=== PATIENT | female | born 1990 | race Caucasian/White ===

== ENCOUNTER 2017-01-13 18:04 | Emergency (ER) | payer BC, MEDICAID ==
[~2017-01-13] VITALS: Ht 157.5 cm; Wt 97.8 kg
[~2017-01-13 18:04] MED LIST: DESO1TAB33 PO; ENOX150S5 SQ; FOLI-17 PO; IBUP-1222 PO; IBUP800T PO; OXYC-302 PO; PREN1TAB60 PO; WARF5TAB7 PO-COUM; [UNRECOGNIZED DRUG - CODE] SQ; [UNRECOGNIZED DRUG - OTHER] PO
[2017-01-13] MEDS ORDERED: SODIUM CHLORIDE 0.9% 1,000 ML IV ONE (18:51)
[2017-01-13] MEDS ORDERED: SODIUM CHLORIDE 0.9% 1,000ML IVBOLUS ONE (19:00)
[2017-01-13] MEDS ORDERED: ONDANSETRON 2MG/ML, 2ML IVPush ONE (19:00)
[2017-01-13] MEDS ORDERED: FAMOTIDINE 20 MG/2 ML IVP ONE (19:00)
[2017-01-13 19:27] LABS: ASPARTATE AMINO TRANSFERASE 17 U/L (15-37); BLOOD UREA NITROGEN 15 mg/dL (7-18)
[2017-01-13] MEDS ORDERED: ONDANSETRON 2MG/ML, 2ML ONE (20:41)
[2017-01-13] MEDS ORDERED: FAMOTIDINE 20 MG/2 ML ONE (20:41)
[2017-01-13 22:11] VITALS: BP 115/68
== END 2017-01-14 00:31 | disposition home or self-care (01) ==
LOC: ED 21:57
DX: R10.84 Generalized abdominal pain (principal); R11.2 Nausea with vomiting, unspecified; R19.7 Diarrhea, unspecified; Z90.49 Acquired absence of other specified parts of digestive tract
CPT/HCPCS: 36415; 74022; 80053; 81001; 83690; 84703; 85025; 93005; 96361; 96374; 96375; 99285; J2405; J7030; S0028

== ENCOUNTER → 2017-02-04 | Outpatient (CLI) | payer BC, MEDICAID ==
[~2017-02-04] MED LIST changes: +None per pt
[2017-02-04 11:07] LABS: BLOOD UREA NITROGEN 9 mg/dL (7-18)
[2017-02-04 11:12] LABS: ASPARTATE AMINO TRANSFERASE 16 U/L (15-37)
== END | disposition home or self-care (01) ==
LOC: STAR 09:44
PROVIDERS: ATTEND Obstetrics & Gynecology Gynecology
DX: Z01.818 Encounter for other preprocedural examination (principal); N94.6 Dysmenorrhea, unspecified; N93.9 Abnormal uterine and vaginal bleeding, unspecified
CPT/HCPCS: 36415; 80053; 81003; 84703; 85025

== ENCOUNTER 2017-02-11 05:13 | Inpatient (IN) | payer BC, MEDICAID ==
[2017-02-04 10:09] VITALS: BP 115/76
[~2017-02-11] VITALS: Ht 157.5 cm; Wt 97.0 kg
[2017-02-11] MEDS ORDERED: LACTATED RINGERS 1,000 ML IV SCH (05:44)
[2017-02-11] MEDS ORDERED: LIDOCAINE 1%, 2ML SQ PRN (06:00)
[2017-02-11 06:06] LABS: HCG UR OBC PASS
[2017-02-11] MEDS ORDERED: EPINEPHRINE 1 MG/ML, 1ML ONE (07:13)
[2017-02-11] MEDS ORDERED: FLUORESCEIN SODIUM 500 MG/5 ML ONE (07:13)
[2017-02-11] MEDS ORDERED: BUPIVACAINE/PF 0.25% ONE (07:14)
[2017-02-11] MEDS ORDERED: LIDOCAINE/PF 1%, 30ML ONE (07:14)
[2017-02-11] MEDS ORDERED: SILVER NITRATE STICK TP ONE (07:14)
[2017-02-11] MEDS ORDERED: ENOXAPARIN 40 MG/0.4 ML SQ ONE (07:30)
[2017-02-11] MEDS ORDERED: FENTANYL PF 250 MCG/5ML ONE (07:30)
[2017-02-11] MEDS ORDERED: HYDROmorphone 1 MG/ML, 1ML ONE (07:30)
[2017-02-11] MEDS ORDERED: PROMETHAZINE 25 MG/ML, 1ML IV PRN (08:00)
[2017-02-11] MEDS ORDERED: hydrALAzine 20 MG/ML, 1ML IV PRN (08:00)
[2017-02-11] MEDS ORDERED: LABETALOL 5MG/ML, 20ML IV PRN (08:00)
[2017-02-11] MEDS ORDERED: MIDAZOLAM 1 MG/ML, 2ML IV PRN (08:00)
[2017-02-11] MEDS ORDERED: HYDROmorphone 1 MG/ML, 1ML IV PRN (08:00)
[2017-02-11] MEDS ORDERED: ONDANSETRON 2MG/ML, 2ML IVPush PRN (08:00)
[2017-02-11] MEDS ORDERED: OXYcodone 5 MG/5 ML ORAL.SOL UDC PO PRN (08:00)
[2017-02-11] MEDS ORDERED: MEPERIDINE/PF 25MG/0.5ML IVPush PRN (08:00)
[2017-02-11] MEDS ORDERED: FENTANYL PF 100 MCG/2ML ONE (10:35)
[2017-02-11] MEDS ORDERED: ONDANSETRON 2MG/ML, 2ML ONE ×2 (10:35→15:57)
[2017-02-11] MEDS ORDERED: PROMETHAZINE 25 MG/ML, 1ML ONE (10:47)
[2017-02-11] MEDS: FENTANYL PF 100 MCG/2ML IV PRN ×2 (10:53→10:58)
[2017-02-11 11:25] VITALS: BP 114/60
[2017-02-11] MEDS ORDERED: BISACODYL 10 MG SUPP PR PRN (12:00)
[2017-02-11] MEDS ORDERED: HYDROmorphone 2 MG/ML, 1ML IV PRN (12:00)
[2017-02-11] MEDS ORDERED: ONDANSETRON ODT 4 MG PO PRN (14:30)
[2017-02-11 14:40] VITALS: BP 109/52
[2017-02-11] MEDS: CEFAZOLIN PMX 2GM/100ML 100 ML IVPB SCH ×2 (15:36→23:41)
[2017-02-11] MEDS: LACTATED RINGERS 1,000 ML IV SCH ×2 (15:39→23:12)
[2017-02-11] MEDS ORDERED: PROPOFOL 10 MG/ML, 20ML ONE (15:57)
[2017-02-11] MEDS ORDERED: KETOROLAC 30 MG/1 ML ONE (15:57)
[2017-02-11] MEDS ORDERED: ROCURONIUM 10 MG/ML ONE (15:57)
[2017-02-11] MEDS ORDERED: CEFAZOLIN 1,000 MG ONE (15:57)
[2017-02-11] MEDS ORDERED: DEXAMETHASONE 4 MG/ML, 1ML ONE (15:57)
[2017-02-11] MEDS ORDERED: METOCLOPRAMIDE 5 MG/ML, 2ML ONE (15:57)
[2017-02-11] MEDS: SIMETHICONE 80 MG CHEW TAB PO SCH ×2 (16:00→20:42)
[2017-02-11 20:00] VITALS: BP 104/57
[2017-02-12] VITALS: BP 105/55
[2017-02-12] MEDS: ENOXAPARIN 40 MG/0.4 ML SQ SCH (07:26)
[2017-02-12] MEDS: LACTATED RINGERS 1,000 ML IV SCH ×2 (07:27→16:03)
[2017-02-12 07:38] VITALS: BP 114/60
[2017-02-12] MEDS: OXYcodone/APAP 5/325MG TABLET PO PRN (09:34)
[2017-02-12] MEDS: SIMETHICONE 80 MG CHEW TAB PO SCH ×3 (09:38→21:30)
[2017-02-12] MEDS: ONDANSETRON 2MG/ML, 2ML IVPush PRN ×3 (13:09→23:15)
[2017-02-12 13:14] VITALS: BP 112/58
[2017-02-12 19:18] VITALS: BP 109/55
[2017-02-13] MEDS: LACTATED RINGERS 1,000 ML IV SCH ×3 (01:29→20:13)
[2017-02-13 01:35] VITALS: BP 100/58
[2017-02-13] MEDS: ONDANSETRON 2MG/ML, 2ML IVPush PRN ×3 (03:36→20:13)
[2017-02-13] MEDS: ENOXAPARIN 40 MG/0.4 ML SQ SCH (06:42)
[2017-02-13 07:17] VITALS: BP 100/60
[2017-02-13] MEDS: SIMETHICONE 80 MG CHEW TAB PO SCH ×3 (10:36→21:16)
[2017-02-13 15:51] VITALS: BP 110/67
[2017-02-13 19:11] VITALS: BP 114/51
[2017-02-14 02:24] VITALS: BP 115/70
[2017-02-14] MEDS: LACTATED RINGERS 1,000 ML IV SCH ×3 (03:54→20:37)
[2017-02-14] MEDS: ENOXAPARIN 40 MG/0.4 ML SQ SCH (06:05)
[2017-02-14 09:48] VITALS: BP 107/62
[2017-02-14] MEDS: SIMETHICONE 80 MG CHEW TAB PO SCH ×3 (09:50→21:27)
[2017-02-14] MEDS: ONDANSETRON 2MG/ML, 2ML IVPush PRN ×2 (11:29→21:34)
[2017-02-14 15:50] VITALS: BP 112/70
[2017-02-14 19:35] VITALS: BP 113/56
[2017-02-14] MEDS: FAMOTIDINE 20 MG/2 ML IVPush SCH (21:27)
[2017-02-15 03:09] VITALS: BP 98/50
[2017-02-15] MEDS: LACTATED RINGERS 1,000 ML IV SCH ×2 (03:33→12:00)
[2017-02-15] MEDS: ENOXAPARIN 40 MG/0.4 ML SQ SCH (06:39)
[2017-02-15 07:42] VITALS: BP 107/62
[2017-02-15] MEDS ORDERED: KETOROLAC 30 MG/1 ML IVPush SCH (09:00)
[2017-02-15] MEDS: FAMOTIDINE 20 MG/2 ML IVPush SCH (09:29)
[2017-02-15] MEDS: SIMETHICONE 80 MG CHEW TAB PO SCH (09:29)
[2017-02-15] MEDS ORDERED: OXYC1TAB7 PO (13:06)
[2017-02-15] MEDS ORDERED: DOCU-30 PO (13:07)
[2017-02-15] MEDS ORDERED: IBUP200T48 PO (13:07)
[2017-02-15] MEDS: OXYcodone/APAP 5/325MG TABLET PO PRN (13:52)
[2017-02-15 13:53] VITALS: BP 116/69
== END 2017-02-15 14:30 | disposition home or self-care (01) | DRG 742 ==
LOC: OUT 05:13 → 4NOR 11:20 → OUT 11:32 → OBSVTOIN 02-12 13:36
PROVIDERS: ADMIT Obstetrics & Gynecology Gynecology; ATTEND Obstetrics & Gynecology Gynecology
PROC: 0UTC7ZZ Resection of Cervix, Via Natural or Artificial Opening (ICD-10-PCS; 2017-02-11)
PROC: 0TJB8ZZ Inspection of Bladder, Via Natural or Artificial Opening Endoscopic (ICD-10-PCS; 2017-02-11)
PROC: 0UT7FZZ Resection of Bilateral Fallopian Tubes, Via Natural or Artificial Opening With Percutaneous Endoscopic Assistance (ICD-10-PCS; 2017-02-11)
PROC: 0UT9FZZ Resection of Uterus, Via Natural or Artificial Opening With Percutaneous Endoscopic Assistance (ICD-10-PCS; principal; 2017-02-11 07:30)
DX: N94.6 Dysmenorrhea, unspecified (principal); K56.7 Ileus, unspecified; N94.10 Unspecified dyspareunia; N93.9 Abnormal uterine and vaginal bleeding, unspecified; I50.9 Heart failure, unspecified; Z86.711 Personal history of pulmonary embolism; I25.2 Old myocardial infarction
CPT/HCPCS: 36415; 81025; 82565; 85014; 85018; 86850; 86900; 88307; G0378; J0171; J0690; J1100; J1170; J1650; J1885; J2270; J2405; J2550; J2704; J3010; J3490; Q0162; J2765; J7120; S0028

== ENCOUNTER 2017-06-09 20:04 | Emergency (ER) | payer BC, MEDICAID ==
[~2017-06-09] VITALS: Ht 157.5 cm; Wt 99.2 kg
[~2017-06-09 20:04] MED LIST changes: +DOCU-131 PO; +IBUP-1223 PO; +IBUP200T48 PO; -IBUP800T PO; +OXYC1TAB7 PO
[2017-06-09 20:07] VITALS: BP 136/76
[2017-06-09] MEDS ORDERED: IBUPROFEN 200 MG TABLET ONE (21:28)
[2017-06-09] MEDS ORDERED: IBUPROFEN 200 MG TABLET PO ONE (21:30)
== END 2017-06-09 21:53 | disposition home or self-care (01) ==
LOC: ED 21:47
DX: S93.622A Sprain of tarsometatarsal ligament of left foot, initial encounter (principal); S93.492A Sprain of other ligament of left ankle, initial encounter; W10.8XXA Fall (on) (from) other stairs and steps, initial encounter; Y93.89 Activity, other specified; Y92.098 Other place in other non-institutional residence as the place of occurrence of the external cause; Y99.8 Other external cause status
CPT/HCPCS: 99284

== ENCOUNTER 2018-02-20 22:59 | Emergency (ER) | payer BC, OTHER ==
[~2018-02-20] VITALS: Ht 157.5 cm; Wt 96.0 kg
[~2018-02-20 22:59] MED LIST changes: -IBUP200T48 PO; +IBUP200T49 PO; +WARF-36 PO-COUM; -WARF5TAB7 PO-COUM
[2018-02-20] MEDS ORDERED: ALBUTEROL/IPRATROPIUM 2.5MG/0.5MG, 3 ML NPPB ONE (23:30)
[2018-02-20] MEDS ORDERED: ALBUTEROL/IPRATROPIUM 2.5MG/0.5MG, 3 ML ONE (23:32)
[2018-02-21 01:19] LABS: ALANINE AMINOTRANSFERASE 23 U/L (12-78); ANION GAP 7 mmol/L (5-15); CALCIUM 8.9 mg/dL (8.5-10.1); CHLORIDE 107 mmol/L (98-107); CREATININE 0.84 mg/dL (0.55-1.02)
[2018-02-21 01:21] LABS: ALKALINE PHOSPHATASE 98 U/L (45-117); BILIRUBIN,TOTAL 0.7 mg/dL (0.2-1.0)
[2018-02-21 01:27] VITALS: BP 122/78
== END 2018-02-21 01:33 | disposition home or self-care (01) ==
LOC: ED 23:59
DX: T51.1X1A Toxic effect of methanol, accidental (unintentional), initial encounter (principal); R07.89 Other chest pain; R06.00 Dyspnea, unspecified; I25.2 Old myocardial infarction; Z90.49 Acquired absence of other specified parts of digestive tract; Y93.89 Activity, other specified; Y92.89 Other specified places as the place of occurrence of the external cause; Y99.8 Other external cause status
CPT/HCPCS: 36415; 71046; 80053; 93005; 94640; 99285; J7620

== ENCOUNTER → 2018-04-21 | Outpatient (CLI) | payer BC | END | disposition home or self-care (01) | LOC: CFH 13:54 | PROVIDERS: ATTEND Internal Medicine | DX: R06.00 Dyspnea, unspecified (principal); R07.9 Chest pain, unspecified; Z86.718 Personal history of other venous thrombosis and embolism | CPT/HCPCS: 71250 ==

== ENCOUNTER 2019-06-03 19:28 | Emergency (ER) | payer BC, OTHER ==
[~2019-06-03] VITALS: Ht 157.5 cm; Wt 112.0 kg
[2019-06-03 19:32] VITALS: BP 117/70
[2019-06-03] MEDS ORDERED: HYDROcodone/APAP 5/325 TABLET ONE (20:50)
[2019-06-03] MEDS ORDERED: DIAZEPAM 5 MG TABLET ONE (20:50)
[2019-06-03] MEDS ORDERED: HYDROcodone/APAP 5/325 TABLET PO ONE (21:00)
[2019-06-03] MEDS ORDERED: DIAZEPAM 5 MG TABLET PO ONE (21:00)
== END 2019-06-03 20:57 | disposition home or self-care (01) ==
LOC: ED 20:51
DX: S46.911A Strain of unspecified muscle, fascia and tendon at shoulder and upper arm level, right arm, initial encounter (principal); I25.2 Old myocardial infarction; W18.30XA Fall on same level, unspecified, initial encounter; Y93.89 Activity, other specified; Y92.009 Unspecified place in unspecified non-institutional (private) residence as the place of occurrence of the external cause; Y99.8 Other external cause status
CPT/HCPCS: 99283

== ENCOUNTER 2020-08-15 19:26 | Emergency (ER) | payer BC ==
[~2020-08-15] VITALS: Ht 157.5 cm; Wt 113.0 kg
[2020-08-15] MEDS ORDERED: SODIUM CHLORIDE 0.9% 1,000ML IVBOLUS ONE (20:00)
[2020-08-15] MEDS ORDERED: SODIUM CHLORIDE FLUSH 10ML SYR IVF ONE (20:00)
[2020-08-15] MEDS ORDERED: METOCLOPRAMIDE 5 MG/ML, 2ML IVPush ONE (20:00)
[2020-08-15] MEDS ORDERED: METOCLOPRAMIDE 5 MG/ML, 2ML ONE (20:09)
[2020-08-15 20:31] LABS: BASOPHILS % (AUTO) 1 % (0-1); EOSINOPHILS % (AUTO) 0 % (1-7); LYMPHOCYTES % (AUTO) 11 % (22-44); MEAN CORPUSCULAR HEMOGLOBIN 29.8 pg (27.0-34.8); MEAN CORPUSCULAR HGB CONC 34.5 g/dL (32.4-35.8); MEAN PLATELET VOLUME 8.5 fL (7.4-10.4); MONOCYTES % (AUTO) 4 % (2-9); NEUTROPHILS % (AUTO) 84 % (42-75); PLATELET COUNT 299 x10^3/uL (130-400); RED BLOOD COUNT 4.87 x10^6/uL (3.82-5.3)
[2020-08-15 20:40] LABS: ALANINE AMINOTRANSFERASE 52 U/L (12-78); ALBUMIN 3.5 g/dL (3.4-5.0); ANION GAP 6 mmol/L (5-15); CALCIUM 9.2 mg/dL (8.5-10.1); CHLORIDE 108 mmol/L (98-107); CREATININE 0.87 mg/dL (0.55-1.02)
[2020-08-15 20:45] LABS: ALKALINE PHOSPHATASE 108 U/L (45-117); BILIRUBIN,TOTAL 0.6 mg/dL (0.2-1.0)
[2020-08-15 21:00] LABS: MD SCAN
--- NOTE | 2020-08-15 21:15 | NUR ---
RN at bedside. Pt reports she feels less nauseous. Denies needs at this time.
--- NOTE | 2020-08-15 22:08 | NUR ---
Pt ambulating to bathroom.
--- NOTE | 2020-08-15 22:14 | NUR ---
UA collected and sent to lab.
[2020-08-15 22:22] LABS: MICROSCOPIC NOT IND
[2020-08-15 23:08] VITALS: BP 111/62
--- NOTE | 2020-08-15 23:13 | NUR ---
Pt agrees with and understands discharge plan and instructions.
--- NOTE | 2020-08-15 23:23 | NUR ---
IV removed- catheter intact, hemostasis achieved.
== END 2020-08-15 23:25 | disposition home or self-care (01) ==
LOC: ED 21:27
DX: R11.2 Nausea with vomiting, unspecified (principal); R10.13 Epigastric pain; I25.2 Old myocardial infarction; Z90.710 Acquired absence of both cervix and uterus
CPT/HCPCS: 36415; 80053; 81003; 83690; 84703; 85025; 96374; 96375; 99283; J2765; J7030

== ENCOUNTER 2020-11-09 16:54 | Emergency (ER) | payer BC ==
[~2020-11-09] VITALS: Ht 157.5 cm; Wt 109.2 kg
[~2020-11-09 16:54] MED LIST changes: -FOLI-17 PO; +FOLI1TAB32 PO; -OXYC-302 PO; +OXYC1TAB14 PO
--- NOTE | 2020-11-09 17:08 | NUR ---
PT AMBULATORY TO ROOM FROM TRIAGE. PT PLACED ON MONITORS, CALL LIGHT WITHIN REACH.
[2020-11-09] MEDS ORDERED: SODIUM CHLORIDE 0.9% 1,000ML IVBOLUS ONE ×2 (17:30→19:30)
[2020-11-09] MEDS ORDERED: SODIUM CHLORIDE FLUSH 10ML SYR IVF ONE (17:30)
--- NOTE | 2020-11-09 17:31 | NUR ---
XRAY AT BS
[2020-11-09 17:50] LABS: BASOPHILS % (AUTO) 1 % (0-1); EOSINOPHILS % (AUTO) 0 % (1-7); LYMPHOCYTES % (AUTO) 16 % (22-44); MEAN CORPUSCULAR HEMOGLOBIN 30.1 pg (27.0-34.8); MEAN CORPUSCULAR HGB CONC 34.5 g/dL (32.4-35.8); MEAN PLATELET VOLUME 8.2 fL (7.4-10.4); MONOCYTES % (AUTO) 6 % (2-9); NEUTROPHILS % (AUTO) 77 % (42-75); PLATELET COUNT 361 x10^3/uL (130-400); RED BLOOD COUNT 4.94 x10^6/uL (3.82-5.3)
[2020-11-09 17:55] LABS: ALBUMIN 3.9 g/dL (3.4-5.0); ANION GAP 8 mmol/L (5-15); CALCIUM 9.4 mg/dL (8.5-10.1); CHLORIDE 107 mmol/L (98-107)
[2020-11-09 17:58] LABS: MD NO
[2020-11-09 18:08] LABS: ALANINE AMINOTRANSFERASE 83 U/L (12-78); ALKALINE PHOSPHATASE 108 U/L (45-117); BILIRUBIN,TOTAL 0.5 mg/dL (0.2-1.0); TOTAL PROTEIN 8.5 g/dL (6.4-8.2); TROPONIN I < 0.015 ng/mL (0.000-0.045)
--- NOTE | 2020-11-09 18:38 | NUR ---
PT TO CT
--- NOTE | 2020-11-09 18:49 | NUR ---
BACK FROM CT, MONITORS IN PLACE
[2020-11-09] MEDS ORDERED: OMNIPAQUE 350 MG/ML, 100ML BOTTLE ONE (18:53)
--- NOTE | 2020-11-09 19:19 | NUR ---
RECEIVED REPORT FROM TERI MELLO. PT RESTING ON [place]. NADN. [place].
[2020-11-09 20:11] VITALS: BP 127/79
--- NOTE | 2020-11-09 20:12 | NUR ---
AFTER 2L NS PT HR MAINTAINING AT [id number]. PT PLACED FOR RECHECK.
--- NOTE | 2020-11-09 20:58 | NUR ---
PER ERP DR. PARKER NO NEED FOR CARDIOLOGY REFERRAL AT THIS TIME. PT REFUSED ADMISSION. AWARE TO RETURN TO ED FOR NEW/WORSENING SX.
== END 2020-11-09 20:59 | disposition home or self-care (01) ==
LOC: ED 17:24
DX: R00.2 Palpitations (principal); R00.0 Tachycardia, unspecified; R06.02 Shortness of breath; J45.909 Unspecified asthma, uncomplicated; I25.2 Old myocardial infarction; Z98.51 Tubal ligation status; Z90.49 Acquired absence of other specified parts of digestive tract; Z90.710 Acquired absence of both cervix and uterus
CPT/HCPCS: 36415; 71045; 71275; 80053; 83880; 84443; 84484; 85025; 93005; 96360; 96361; 99285; J7030; Q9967

== ENCOUNTER 2021-04-03 17:50 | Emergency (ER) | payer BC ==
[~2021-04-03 17:50] MED LIST changes: +OXYC1TAB12 PO; -OXYC1TAB14 PO
[2021-04-03 19:34] LABS: BASOPHILS % (AUTO) 1 % (0-1); EOSINOPHILS % (AUTO) 1 % (1-7); LYMPHOCYTES % (AUTO) 20 % (22-44); MEAN CORPUSCULAR HEMOGLOBIN 29.6 pg (27.0-34.8); MEAN CORPUSCULAR HGB CONC 33.4 g/dL (32.4-35.8); MEAN PLATELET VOLUME 8.8 fL (7.4-10.4); MONOCYTES % (AUTO) 6 % (2-9); NEUTROPHILS % (AUTO) 73 % (42-75); PLATELET COUNT 322 x10^3/uL (130-400); RED BLOOD COUNT 4.75 x10^6/uL (3.82-5.3)
[2021-04-03 19:45] LABS: ALANINE AMINOTRANSFERASE 85 U/L (12-78); ALBUMIN 3.6 g/dL (3.4-5.0); ANION GAP 4 mmol/L (5-15); CALCIUM 9.1 mg/dL (8.5-10.1); CHLORIDE 105 mmol/L (98-107); CREATININE 0.69 mg/dL (0.55-1.02)
[2021-04-03 19:47] LABS: ALKALINE PHOSPHATASE 95 U/L (45-117); BILIRUBIN,TOTAL 0.6 mg/dL (0.2-1.0); TOTAL PROTEIN 7.8 g/dL (6.4-8.2)
--- NOTE | 2021-04-03 20:16 | NUR ---
set up mechanic: patient to room from lobby.
[2021-04-03 20:32] LABS: MICROSCOPIC NOT IND
--- NOTE | 2021-04-03 20:32 | NUR ---
PT AMBULATED TO ROOM, C/O LOWER RIGHT ABD PAIN SINCE YESTERDAY. DENIES ANY N/V/D OR CONSTIPATION. PT CONNECTED TO ALL MONITORS. MD AT BEDSIDE TO ASSESS PT. PT RESTING IN [facility].
[2021-04-03 21:09] VITALS: BP 127/72
--- NOTE | 2021-04-03 21:10 | NUR ---
PT RETURNED FROM CT. RESTING IN [facility] WITH SPOUSE BEDSIDE.
[2021-04-03] MEDS ORDERED: KETOROLAC 30 MG/1 ML ONE (21:22)
[2021-04-03] MEDS ORDERED: KETOROLAC 30 MG/1 ML IVPush ONE (21:30)
[2021-04-03] MEDS ORDERED: OMNIPAQUE 350 MG/ML, 100ML BOTTLE ONE (22:24)
== END 2021-04-03 21:52 | disposition home or self-care (01) ==
LOC: ED 21:52
DX: R10.31 Right lower quadrant pain (principal)
CPT/HCPCS: 36415; 74177; 76830; 80053; 81003; 85025; 96374; 99285; J1885; Q9967